=== PATIENT | female | born 2000 | race Caucasian/White ===

== ENCOUNTER 2024-11-28 09:39 | Emergency (ER) | payer MEDICAID ==
[~2024-11-28] VITALS: Ht 154.9 cm; Wt 59.4 kg
[2024-11-28] MEDS ORDERED: Amoxicillin875 MG PO (10:34)
[2024-11-28] MEDS ORDERED: Dexamethasone Sod Phos 10 MG/ML 1ML VIAL PO ONE (10:35)
[2024-11-28] MEDS ORDERED: Dexamethasone Sod Phos 10 MG/ML 1ML VIAL ONE (10:53)
== END 2024-11-28 10:57 | disposition home or self-care (01) ==
LOC: ER 09:39
DX: J02.0 Streptococcal pharyngitis (principal)
CPT/HCPCS: 87430; 99282; J1100

== ENCOUNTER 2024-12-11 20:48 | Emergency (ER) | payer OTHER ==
[~2024-12-11] VITALS: Ht 154.9 cm; Wt 61.2 kg
[~2024-12-11 20:48] MED LIST: Amoxicillin875 MG PO
== END 2024-12-11 21:44 | disposition home or self-care (01) ==
LOC: ER 20:48
DX: M25.531 Pain in right wrist (principal)
CPT/HCPCS: A9270

== ENCOUNTER 2025-03-20 22:06 | Emergency (ER) | payer OTHER ==
[~2025-03-20] VITALS: Ht 154.9 cm; Wt 64.9 kg
[2025-03-20 23:04] LABS: Alanine Aminotransfer (ALT/SGP 30.0 U/L (12-78); Albumin, Blood 4.3 g/dL (3.4-5.0); Albumin/Globulin Ratio 1.2 (0.8-1.8); Anion Gap 5.0 mmol/L (3-11); Aspartate Aminotrans (AST/SGOT 31.0 U/L (12-37); Bilirubin, Total 0.8 mg/dL (0.1-1.0); Blood Urea Nitrogen 14.0 mg/dL (8-24); CO2, Blood 29.0 mmol/L (21-32); Calcium, Blood 9.5 mg/dL (8.5-10.1); Chloride, Blood 107.0 mmol/L (98-108); Creatinine, Blood 0.69 mg/dL (0.40-1.00); Globulin, Blood 3.6 g/dL (2.2-4.0); Glucose, Blood 91.0 mg/dL (70-99); Potassium, Blood 4.0 mmol/L (3.5-5.5); Sodium, Blood 137.0 mmol/L (136-145); Total Protein, Blood 7.9 g/dL (6.4-8.2)
[2025-03-21 00:16] LABS: BASOPHILS ABSOLUTE AUTO 0.04 K/mm3 (0.00-0.23); BASOPHILS PERCENT AUTO 0 % (0-2); EOSINOPHILS ABSOLUTE AUTO 0.07 K/mm3 (0.00-0.68); EOSINOPHILS PERCENT AUTO 0 % (0-6); Hematocrit 39.9 % (33.0-51.0); IMMATURE GRAN ABSOLUTE AUTO 0.07 K/mm3 (0.00-0.10); IMMATURE GRAN PERCENT AUTO 0 % (0-1); LYMPHOCYTES ABSOLUTE AUTO 2.77 K/mm3 (0.84-5.20); LYMPHOCYTES PERCENT AUTO 16 % (21-46); MONOCYTES ABSOLUTE AUTO 0.79 K/mm3 (0.16-1.47); MONOCYTES PERCENT AUTO 5 % (4-13); Mean Corpuscular Volume 85 fL (80-100); NEUTROPHILS ABSOLUTE AUTO 13.61 K/mm3 (1.96-9.15); NEUTROPHILS PERCENT AUTO 78 % (41-73); NRBC ABSOLUTE 0.00 K/mm3 (0.00-0.02); NRBC Auto 0.0 /100 WBC (0.0-0.2); Platelet Count 274 K/mm3 (150-400); RDW Coefficient Variation 11.6 % (11.7-14.2); RDW Standard Deviation 35.4 fL (35.1-46.3)
== END 2025-03-21 01:40 | disposition home or self-care (01) ==
LOC: ER 22:06
PROVIDERS: Student in an Organized Health Care Education/Training Program
DX: S93.401A Sprain of unspecified ligament of right ankle, initial encounter (principal); X50.0XXA Overexertion from strenuous movement or load, initial encounter
CPT/HCPCS: 73600; 80053; 84703; 85025; 85379; 99283-25